=== PATIENT | female | born 1960 | race Caucasian/White ===

== ENCOUNTER → 2023-11-15 08:38 | Outpatient (REF) | payer OTHER, SELFPAY | LOC: PAVMRI 08:38 | PROVIDERS: ATTENDING PHYSICIAN Internal Medicine Cardiovascular Disease; FAMILY PHYSICIAN Nurse Practitioner Acute Care | DX: I42.9 Cardiomyopathy, unspecified (principal) | CPT/HCPCS: 75561; 75565; A9585 ==

== ENCOUNTER 2024-03-13 10:34 | Day surgery (SDC) | payer MEDICARE, OTHER, SELFPAY ==
[2024-03-13] VITALS (8 sets, daily range): BP systolic 133–184; BP diastolic 52–74; BMI 32.9
[2024-03-13 11:47] LABS: Glucose - Point of Care 176 mg/dl (70-99)
[2024-03-13 15:52] LABS: Glucose - Point of Care 155 mg/dl (70-99)
--- NOTE | 2024-03-13 15:59 | ITS.CL.ICD ---
Addendum entered and electronically signed by Kristofer Berry MD 03/13/24 16:06:
Pulse fluoroscopy 23.1 minutes and 123 mGy
Original Note:
[employer] - ICD
Implantable Cardioverter Defibrillator
Procedure Report:
Date of Procedure: March 13, 2024
Patient : 1960
Procedures: BiV ICD implant
Indication: 1) Class III CHF, LVEF 20-25%, 2) left bundle Branch Block, QRS 131 ms also with conduction disease and first-degree AV delay to 60 ms; on guideline based medical therapy greater than 3 months with persistent LV dysfunction
�
Implants:
Pulse Generator: [employer]; Model# [id number]; Serial#�[id number]
Atrial Lead: Medtronic: Model# 4574; Serial# [id number]
Right Ventricular Lead: Medtronic; Model# 6935; Serial# [id number]
Left Ventricular Lead: Medtronic; Model# 4798; Serial# [id number]
�
Technique: The patient was prepped and draped in the usual fashion. Local anesthetic was applied to the left prepectoral subcutaneous tissue. A 4 inch incision was made. The left axillary vein was accessed��without difficulty. A subcutaneous pocket
was CREATED. Hemostasis was excellent. The leads were introduced with hemostatic peel away introducer sheaths. The right ventricular lead was placed at the right ventricular apex. The atrial lead was placed in the right atrial appendage. The
coronary sinus was accessed with the aid of the Attain system. There was a small venous dissection in the mid coronary sinus with venography which did not impede placement of the BMW wire or lead. The left ventricular lead was placed in the first
posterolateral branch with lead tip at the mid ventricle in the inferolateral wall. 10 volt pacing did not capture the diaphragm. The leads were secured to the pectoralis muscle and fascia. The leads were appropriately attached to the device. The
pocket was irrigated with antibiotic solution. The device and leads were placed in the pocket and the device was secured to pectoralis muscle and facia. The incision was closed with absorbable sutures. The estimated blood loss was minimal. There
were no complications. Device based testing was performed as described below. IV contrast total: 25 cc.
�
System Analysis:
RA lead: P: 2.8 mV; Threshold: 0.6 V @ 0.5 ms; Impedance: 399 ohms.
RV lead: R: 7 mV; Threshold: 0.8 V @ 0.5 ms; Impedance: 361 ohms.
LV lead: R: 6 mV; Threshold: 0.5 V @ 0.5 ms; Impedance: 399 ohms in various configurations including the LV tip at times impedance values were greater than 2000 ohms utilizing the tip although in multiple vectors lead threshold was excellent with
excellent sensing and stable pacing parameters and as such we left the lead in this position.
�
Final Programming: Tachy: VT/VF:188; Mohan: DDDR 60-120.
�
Conclusion: Uncomplicated Biventricular ICD implant
�
Recommendation: Routine post BiV ICD care.
�
cc: Dr. Danial Gandhi
�
[2024-03-13] MEDS: APRESOLINE 50 MG PO ×2 (17:05→21:50)
--- NOTE | 2024-03-13 17:08 | PTCARENOTE ---
Received the patient from the laborer sawmill in her bed. The patient is aaox3, vss, v-pacing is noted on the monitor. Her left chest wall antibacterial dressing is c/d/i. Left arm immobilizer is in place. She has no complaints of pain. I instructed her on
her activity restriction and expected oob time. I oriented her to her room. Her call salazar is within reach. Her Noah is at her bedside.
[2024-03-13] MEDS: TYLENOL 650 MG PO ×2 (17:31→21:51)
[2024-03-13 17:37] LABS: Glucose - Point of Care 160 mg/dl (70-99)
[2024-03-13] MEDS: AMARYL 2 MG PO (18:03)
[2024-03-13] MEDS: NOVOLOG FLEXPEN-MODERATE RESISTANCE 1 UNITS SC (18:03)
[2024-03-13] MEDS: COREG 3.125 MG PO (19:39)
[2024-03-13] MEDS: SYMBICORT 160/4.5 MCG INHALER 1 PUFF INH (20:10)
--- NOTE | 2024-03-13 20:56 | PTCARENOTE ---
Pt. received at change of shift. Pt. seen and assessed in room. Left arm immobilizer present, pacemaker site covered with aqua cell and clean, dry, and intact. RN explained plan of care to patient and spouse, pt. verbalizes understanding. Call salazar
within reach. Continuing to monitor at this time.
[2024-03-13 21:19] LABS: Glucose - Point of Care 361 mg/dl (70-99)
[2024-03-13] MEDS: NOVOLOG FLEXPEN 9 UNITS SC (21:51)
[2024-03-13] MEDS: ANCEF 5 IV (21:51)
--- NOTE | 2024-03-14 02:03 | PTCARENOTE ---
9pm accucheck done, resulted at 361. House provider made aware. 9 units of insulin given per order. rechecking blood sugar per protocol.
[2024-03-14 03:39] VITALS: BP 163/72
[2024-03-14 03:50] LABS: Glucose - Point of Care 331 mg/dl (70-99)
[2024-03-14] MEDS: NOVOLOG FLEXPEN 7 UNITS SC (04:20)
[2024-03-14 04:22] VITALS: BMI 32.9
[2024-03-14 04:22] LABS: Hematocrit 30.8 % (37.0-47.0); Hemoglobin 10.6 g/dL (12.0-16.0); Mean Corp Hgb Conc. 34.4 g/dL (33.0-37.0); Mean Corpuscular Hgb 32.6 pg (27.0-31.0); Mean Corpuscular Volume 94.8 fL (81.0-99.0); Mean Platelet Volume 10.5 fL (7.4-10.4); Platelet Count 210 10^3/uL (130-400); Red Blood Cell Count 3.25 10^6/uL (4.20-5.40); Red Cell Dist. Width 13.2 % (11.5-14.5); White Blood Cell Count 9.5 10^3/uL (4.8-10.8)
[2024-03-14 04:47] LABS: Blood Urea Nitrogen 95 mg/dl (7-17); Calcium 9.7 mg/dl (8.4-10.2); Carbon Dioxide 17 mmol/L (22-30); Chloride 112 mmol/L (98-107); Estimated Creatinine Clearance 32 ml/min; Glucose 306 mg/dl (70-99); Magnesium 2.5 mg/dl (1.6-2.3); Potassium 4.9 mmol/L (3.5-5.1); Sodium 141 mmol/L (135-145); eGFR 25.67
[2024-03-14] MEDS: ANCEF 5 IV (05:52)
[2024-03-14 05:59] LABS: Glucose - Point of Care 289 mg/dl (70-99)
[2024-03-14 07:05] VITALS: BP 152/72
[2024-03-14 07:38] LABS: Glucose - Point of Care 244 mg/dl (70-99)
[2024-03-14] MEDS: FLUSH (NSS) 1 FLUSH IV (07:43)
[2024-03-14] MEDS: DEMADEX 20 MG PO (07:43)
[2024-03-14] MEDS: LOW STRENGTH ASPIRIN 81 MG PO (07:43)
[2024-03-14] MEDS: COREG 3.125 MG PO (07:43)
[2024-03-14] MEDS: FARXIGA 10 MG PO (07:43)
[2024-03-14] MEDS: AMARYL 2 MG PO (07:43)
[2024-03-14] MEDS: APRESOLINE 50 MG PO (07:43)
[2024-03-14] MEDS: NOVOLOG FLEXPEN-MODERATE RESISTANCE 3 UNITS SC (07:50)
[2024-03-14] MEDS: SYMBICORT 160/4.5 MCG INHALER 1 PUFF INH (07:52)
[2024-03-14] MEDS: TYLENOL 650 MG PO (07:54)
--- NOTE | 2024-03-14 08:49 | W.PN.CARDCBS ---
Addendum entered and electronically signed by Kristofer Berry MD 03/14/24 09:54:
patient seen and examined
agree with GEAR TESTER note
agree with GEAR TESTER plan
site cdi
ecg reviewed biv pacing
cxr reviewed stable lead positions
no ptx
remainder exam as per GEAR TESTER note
IMPRESSION:
Class III chronic systolic HFrEF, 20-25%
Non Ischemic Cardiomyopathy
LBBB, 1st Deg AVB
s/p Bi-V ICD implant, 03/13/24
CKD3b
HTN
HLD
DM
Asthma
Thyroid nodule
pericardial effusion
PLAN:
tele- VPaced w/underlying sinus rhythm
device site stable
post CXR w/stable lead position, no pneumothorax
Creat 2.1 w/GFR 25 today- baseline 1.8-2.1- stabl. procedure performed with minimum dye although she has baseline elevated bun/cre/acidemia has outpatient follow up with PCP
activity limitations reviewed
continue current meds
incision check next week at [facility]
home today
Original Note:
Today's Communication / Plan
-
continue prn tylenol for incisional pain
incision check next week
home today
Impression / Plan
-
PCP: [facility]
CDY: Danial Gandhi MD
64 y/o, presents with class III chronic systolic HFrEF, 20-25%, non ischemic cardiomyopathy, and LBBB and 1st AVB. Her EF has been persistently low despite maximally tolerated GDMT.
S/P Bi-V ICD implant
IMPRESSION:
Class III chronic systolic HFrEF, 20-25%
Non Ischemic Cardiomyopathy
LBBB, 1st Deg AVB
s/p Bi-V ICD implant, 03/13/24
CKD3b
HTN
HLD
DM
Asthma
Thyroid nodule
pericardial effusion
PLAN:
tele- VPaced w/underlying sinus rhythm
device site stable
post CXR w/stable lead position, no pneumothorax
Creat 2.1 w/GFR 25 today- baseline 1.8-2.1- stable
activity limitations reviewed
continue current meds
incision check next week at [facility]
home today
Progress Note - Biology Laboratory Assistant
Subjective
Date of Service: March 14, 2024
Denies cp/palps/dyspnea
oob ambulating
deivce site mild pain, relieved with tylenol
Objective
Labs:
03/14/24 03:54
03/14/24 03:54
Labs
Hgb 10.6 g/dL (12.0-16.0) L 03/14/24 03:54
Hct 30.8 % (37.0-47.0) L 03/14/24 03:54
Plt Count 210 10^3/uL (130-400) 03/14/24 03:54
Sodium 141 mmol/L (135-145) 03/14/24 03:54
Potassium 4.9 mmol/L (3.5-5.1) 03/14/24 03:54
BUN 95 mg/dl (7-17) H 03/14/24 03:54
Creatinine 2.1 mg/dL (0.6-1.0) H 03/14/24 03:54
Glucose 306 mg/dl (70-99) H 03/14/24 03:54
Vital Signs and I&O:
Vital Signs
Temp Pulse Resp BP Pulse Ox
97.9 F 69 18 152/72 96
03/14/24 07:05 03/14/24 07:55 03/14/24 07:55 03/14/24 07:05 03/14/24 07:55
Vital Signs
Temp Pulse Resp BP Pulse Ox
97.9 F 69 18 152/72 96
03/14/24 07:05 03/14/24 07:55 03/14/24 07:55 03/14/24 07:05 03/14/24 07:55
Intake & Output
03/12/24 03/13/24 03/14/24 03/15/24
06:59 06:59 06:59 06:59
Intake Total 100 / 100
Output Total 1050 / 1050 800 / 800
Balance -950 / -950 -800 / -800
Physical Exam
Physical Exam
AAOx3, MAEE 5/5
RRR S1 S2 no murmurs
CTA bilat, non labored
left ACW w/aquacel dressing CDI, no ht/bleeding, non tender
soft abd, + bs
bilat extremities w/palpable distal pulses, no edema
--- NOTE | 2024-03-14 10:29 | W.DS.TRANS ---
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
-
Discharge Instructions:
Sleep Apnea Risk Intermediate
Discharge Diagnosis/Procedures Bi-V ICD implant
Diet Low Cholesterol,2 Gram Sodium,Restrict fluids to
48 oz
Driving Restrictions No driving for 1 week
Bathing Restrictions OK to Shower
Specialty Instructions Weigh Daily
Instructions:
Stand-Alone Forms: DC Inst - Implanted Device
Changes to Home Medications: No
Discharge Medications:
DC Medications w/original date entered in [employer]
aspirin 81 mg chewable tablet 81 mg PO DAILY 09/02/21
budesonide-formoterol HFA 160 mcg-4.5 mcg/actuation aerosol inhaler (Symbicort) 1 puff inhalation BID 03/13/24
carvedilol 3.125 mg tablet 3.125 mg PO BID 03/13/24
empagliflozin 10 mg tablet (Jardiance) 10 mg PO DAILY 03/13/24
glimepiride 2 mg tablet 2 mg PO BID 03/13/24
hydralazine 50 mg tablet 50 mg PO TID 03/13/24
torsemide 20 mg tablet 20 mg PO DAILY 03/13/24
Home Medication Changes
Pending Results: No
[2024-03-14 10:33] LABS: Glycohemoglobin (HgbA1c) 8.5 % (4.0-5.6)
[2024-03-14 11:40] VITALS: BP 167/68
--- NOTE | 2024-03-14 14:20 | CM ---
Chart reviewed. Patient is independent of ADLS, lives with her in a [address] [facility], ambulates with a SPC. Plan is for the patient to return home.
== END 2024-03-14 12:06 | disposition home or self-care (01) ==
LOC: CATH 10:34
PROVIDERS: Nurse Practitioner Adult Health; ATTENDING PHYSICIAN Internal Medicine Cardiovascular Disease; FAMILY PHYSICIAN Nurse Practitioner Acute Care; OTHER PHYSICIAN Internal Medicine Cardiovascular Disease
DX: I13.0 Hypertensive heart and chronic kidney disease with heart failure and stage 1 through stage 4 chronic kidney disease, or unspecified chronic kidney disease (principal); I50.22 Chronic systolic (congestive) heart failure; N18.32 Chronic kidney disease, stage 3b; I44.7 Left bundle-branch block, unspecified; I50.20 Unspecified systolic (congestive) heart failure; E11.22 Type 2 diabetes mellitus with diabetic chronic kidney disease; E78.5 Hyperlipidemia, unspecified; J45.909 Unspecified asthma, uncomplicated; E04.1 Nontoxic single thyroid nodule; I31.39 Other pericardial effusion (noninflammatory); I42.8 Other cardiomyopathies; Z79.82 Long term (current) use of aspirin; Z79.899 Other long term (current) drug therapy; I44.0 Atrioventricular block, first degree
CPT/HCPCS: 33249; 33225; 71045; 80048; 82962; 83036; 83735; 85027; 93005; 94640; C1730; C1769; C1777; C1882; C1887; C1892; C1898; C1900; Q9967